=== PATIENT | female | born 1945 | race Caucasian/White ===

== ENCOUNTER 2021-05-28 21:43 | Emergency (ER) | payer OTHER ==
[~2021-05-28] VITALS: Ht 157.5 cm; Wt 59.0 kg
[~2021-05-28 21:43] MED LIST: BUTALBIT-ACETA1 EACH PO; COZAAR25 MG
== END 2021-05-29 01:48 | disposition home or self-care (01) ==
LOC: ER 21:43
DX: L03.115 Cellulitis of right lower limb (principal); Z03.818 Encounter for observation for suspected exposure to other biological agents ruled out; R21 Rash and other nonspecific skin eruption

== ENCOUNTER 2022-06-05 16:37 | Emergency (ER) | payer OTHER ==
[~2022-06-05] VITALS: Ht 157.5 cm; Wt 59.9 kg
[~2022-06-05 16:37] MED LIST changes: +ATORVASTATIN CA20 MG PO; +[UNRECOGNIZED DRUG - OTHER] PO
[2022-06-05] MEDS ORDERED: AVAPRO75 MG (16:54)
== END 2022-06-05 20:03 | disposition home or self-care (01) ==
LOC: ER 16:37
DX: S09.90XA Unspecified injury of head, initial encounter (principal); W19.XXXA Unspecified fall, initial encounter; Y93.9 Activity, unspecified; Y92.9 Unspecified place or not applicable

== ENCOUNTER 2022-06-10 06:20 | Day surgery (SDC) | payer OTHER ==
[~2022-06-10 06:20] MED LIST changes: +AVAPRO75 MG
[2022-06-10] MEDS ORDERED: MACROBID 100 M100 MG PO (10:23)
== END 2022-06-10 14:10 | disposition home or self-care (01) ==
LOC: CIR.AMB 06:20 → ADM 08:00 → CIR.AMB 08:00
PROVIDERS: ATTEND Obstetrics & Gynecology Gynecology
DX: N81.10 Cystocele, unspecified (principal); R23.4 Changes in skin texture; I10 Essential (primary) hypertension; Z88.1 Allergy status to other antibiotic agents; Z20.822 Contact with and (suspected) exposure to COVID-19; Z88.8 Allergy status to other drugs, medicaments and biological substances

== ENCOUNTER → 2022-08-04 | Emergency (ER) | payer OTHER ==
[~2022-08-04] VITALS: Ht 157.5 cm; Wt 59.9 kg
[~2022-08-04] MED LIST changes: +CANDESARTAN CILE8 MG PO; +MACROBID 100 M100 MG PO
== END | disposition left against medical advice (07) ==
LOC: ER 11:07
DX: Z53.21 Procedure and treatment not carried out due to patient leaving prior to being seen by health care provider (principal)